=== PATIENT | male | born 1935 | race Two or more races ===

== ENCOUNTER 2017-06-02 09:23 | Outpatient (CLI) | payer OTHER ==
[~2017-06-02 09:23] MED LIST: CARTIA XT180 MG PO; DILTIAZEM ER180 M2 PO; LEVOTHROID25 MCG PO; LISINOPRIL HCTZ PO; PLAVIX75 MG PO; VOLTAREN100 GM TOP
[2017-06-07] MEDS ORDERED: VOLTAREN100 GM TOP (10:12)
== END 2017-06-02 09:40 | disposition home or self-care (01) ==
LOC: SONOGRAMA 09:23
DX: M75.22 Bicipital tendinitis, left shoulder (principal)

== ENCOUNTER 2017-06-02 10:52 | Outpatient (CLI) | payer OTHER ==
[2017-06-07] MEDS ORDERED: VOLTAREN100 GM TOP (10:12)
== END 2017-06-02 11:00 | disposition home or self-care (01) ==
LOC: RAD 10:52
DX: M79.632 Pain in left forearm (principal)

== ENCOUNTER 2017-06-28 10:03 | Outpatient (CLI) | payer OTHER | END 2017-06-28 10:23 | disposition home or self-care (01) | LOC: RAD 10:03 | DX: M17.11 Unilateral primary osteoarthritis, right knee (principal) ==

== ENCOUNTER → 2017-06-30 | Outpatient (CLI) | payer OTHER | END | disposition home or self-care (01) | LOC: NUCLEAR 08:09 | DX: I87.2 Venous insufficiency (chronic) (peripheral) (principal) ==

== ENCOUNTER 2017-08-20 08:15 | Outpatient (CLI) | payer OTHER | END 2017-08-20 08:18 | disposition home or self-care (01) | LOC: NUCLEAR 08:15 | DX: I87.2 Venous insufficiency (chronic) (peripheral) (principal) ==

== ENCOUNTER 2019-06-12 07:10 | Outpatient (CLI) | payer OTHER | END 2019-06-12 07:17 | disposition home or self-care (01) | LOC: SONOGRAMA 07:10 → MAMO-SONO 07:15 → SONOGRAMA 07:17 → MAMO-SONO 06-14 07:45 | DX: E04.8 Other specified nontoxic goiter (principal); R10.84 Generalized abdominal pain ==

== ENCOUNTER 2020-07-30 07:57 | Outpatient (CLI) | payer OTHER | END 2020-07-30 07:58 | disposition home or self-care (01) | LOC: NUCLEAR 07:57 | PROVIDERS: ATTEND Podiatrist Foot Surgery | DX: I87.2 Venous insufficiency (chronic) (peripheral) (principal); I70.213 Atherosclerosis of native arteries of extremities with intermittent claudication, bilateral legs ==

== ENCOUNTER 2020-08-05 07:33 | Outpatient (CLI) | payer OTHER | END 2020-08-05 07:40 | disposition home or self-care (01) | LOC: NUCLEAR 07:33 | PROVIDERS: ATTEND Podiatrist Foot Surgery | DX: I87.2 Venous insufficiency (chronic) (peripheral) (principal); I70.203 Unspecified atherosclerosis of native arteries of extremities, bilateral legs ==

== ENCOUNTER 2020-10-15 07:12 | Outpatient (CLI) | payer OTHER | END 2020-10-15 07:13 | disposition home or self-care (01) | LOC: SONOGRAMA 07:12 → MAMO-SONO 08:15 | PROVIDERS: ATTEND Internal Medicine Endocrinology, Diabetes & Metabolism | DX: E04.8 Other specified nontoxic goiter (principal) ==

== ENCOUNTER 2021-09-08 07:40 | Outpatient (CLI) | payer OTHER | END 2021-09-08 07:44 | disposition home or self-care (01) | LOC: RAD 07:40 | PROVIDERS: ATTEND Ophthalmology | DX: Z98.41 Cataract extraction status, right eye (principal); H25.011 Cortical age-related cataract, right eye ==

== ENCOUNTER 2022-11-23 07:25 | Outpatient (CLI) | payer OTHER | END 2022-11-23 07:28 | disposition home or self-care (01) | LOC: NUCLEAR 07:25 | DX: I87.2 Venous insufficiency (chronic) (peripheral) (principal); I70.213 Atherosclerosis of native arteries of extremities with intermittent claudication, bilateral legs ==

== ENCOUNTER 2022-11-24 08:28 | Outpatient (CLI) | payer OTHER | END 2022-11-24 08:32 | disposition home or self-care (01) | LOC: NUCLEAR 08:28 | PROVIDERS: ATTEND Podiatrist Foot Surgery | DX: I87.2 Venous insufficiency (chronic) (peripheral) (principal); I70.213 Atherosclerosis of native arteries of extremities with intermittent claudication, bilateral legs ==

== ENCOUNTER 2023-11-02 08:41 | Outpatient (CLI) | payer OTHER | END 2023-11-02 08:43 | disposition home or self-care (01) | LOC: TOM 08:41 | PROVIDERS: ATTEND Urology | DX: R10.2 Pelvic and perineal pain (principal) ==